=== PATIENT | female | born 1995 | race Caucasian/White ===

== ENCOUNTER 2016-08-11 13:41 | Outpatient (CLI) | payer OTHER ==
[~2016-08-11] VITALS: Ht 160 cm; Wt 74.1 kg
[2016-08-11 13:54] VITALS: BP 119/58; PULSE 83; RESP 18; Ht 160 cm; Wt 74.1 kg
--- NOTE | 2016-08-11 14:51 | PN ---
Date/Time of Note Date/Time of Note DATE: 08/11/16 TIME: 14:47 Outpatient Progress Note Chief Complaint Sepsis/obstructive uropathy/anemia/obesity HPI Sepsis/patient had a pyelonephritis, patient had a bacteremia, patient was recently hospitalized, patient still on antibiotic, Obstructive uropathy/patient had obstructive uropathy, no fever chill, no back pain, improved significantly, Anemia/no hematemesis or melena, ecchymoses bruises or bleeding, Obesity/patient slightly obese, no history of any hypothyroidism, Review of Systems Const: No Fever, no chills, no Wt. loss, no Fatigue, normal appetite, no diaphoresis. Slightly obese, Eyes: No pain, no discharge, no redness, no visual change, no foreign body. ENT: No pain, no bleeding, no congestion, no sore throat, no dysphagia, no discharge or rhinitis. Lymph: No adenopathy, no tender nodes, no lymphedema. Resp: No SOB, no cough, no sputum, no wheezing, no chest pain. CV: No chest pain, no palpitaions, no WILSON, no PND, no edema. GI: Normal appetite, no pain, no nausea, no vomiting, no diarrhea, no blood, no constipation. : No frequency, no urgency, no dysuria, no hematuria, minimal right flank pain which has improved significantly, no discharge, no bleeding. Musc: No bone/joint pain, no back pain, no neck pain, no knee pain, no restricted ROM. Skin: No rash, no skin lesions, no erythema, no laceration, no bruising, no pruritus. Neuro: No CARMONA, no dizziness, no syncope, no seizure, no focal-weakness. Endo: No polyuria, no polydypsia, no dry-skin, no temp-intolerance. Psych: No hallucinations, no depression, no anxiety, no suicidal ideation. Ext: No edema, no pain, no ulcer, no weakness. Physical Exam Vital Signs Date Time Temp Pulse Resp B/P Pulse Ox O2 Delivery O2 Flow Rate FiO2 08/11/16 13:54 98.7 83 18 119/58 99 Room Air General Appearance: A 21 year-old female who appears well-developed, well- nourished, in no acute distress. HEENT: Head normocephalic, atraumatic. Pupils equal, round, reactive to light and accommodate. Sclerae are no jaundice. Nasal turbinates pink without erythema or nasal discharge. Mucous membranes pink and moist without lesions. Oropharynx clear without any exudate or discharge. NECK: Supple. Trachea midline, No thyromegaly, No cervical lymphadenopathy, No mass, No carotid bruits, No JVD, Carotid pulses 2+ bilaterally. PULMONARY: Clear to auscultaion bilaterally, No retractions, Chest expansion symmetric bilaterally, no rales, no ronchi, no dulness on percussion. CARDIAC: Normal SI and S2, Regular rate and rythm, no murmur, gallop, or rub. GASTROINTESTINAL: Abdomen is soft, non-tender, Non Rigid, No distention, Positive bowel sounds x4 quadrants, Liver normal patient has a right flank discomfort, minimal, improved significantly, SKIN: Warm, dry, no rash, no bruise, no echmosis. EXTREMITIES: Bilateral lower extremities normal, no edema, no phlabitus, pulse palpable, no contracture. MUSCULOSKELETAL: Spine Normal, Non-tender, Normal range of motion, No swelling, no deformity, no clubbing, or cyanosis, the patient has no edema to bilateral lower extremities, dorsalis pedis pulses palpable bilaterally. NEUROLOGIC: The patient is awake, alert, oriented, responding to yes/no questions appropriately, moving all extremities, cranial nerve intact, normal strenght, normal power, normal coordination, normal gait. Allergies Coded Allergies: No Known Drug Allergies (Verified Allergy, Unknown, 08/11/16) PMH Sepsis/obstructive uropathy/anemia/obesity Social Hx No smoking no drinking no drugs, Family Hx Noncontributory Assessment/Plan Impression Sepsis/pyelonephritis/obstructive uropathy/anemia/obesity Plan Patient still has minimal discomfort on right flank, but significantly improved , patient still has antibiotic, Patient encouraged to follow with the primary care physician, CBC and CMP, Patient education done, if patient's fever persist or severe pain call us or go to ER, NE THOMAS MD Aug 11, 2016 14:51
== END 2016-08-11 16:33 | disposition home or self-care (01) ==
LOC: DCC 13:41
PROVIDERS: ATTEND Internal Medicine
DX: N12 Tubulo-interstitial nephritis, not specified as acute or chronic (principal); N13.9 Obstructive and reflux uropathy, unspecified; D64.9 Anemia, unspecified; E66.9 Obesity, unspecified; Z68.28 Body mass index [BMI] 28.0-28.9, adult

== ENCOUNTER 2017-04-07 23:20 | Inpatient (IN) | END 2017-04-12 16:05 | disposition home or self-care (01) | DRG 660 ==

== ENCOUNTER 2017-04-18 15:18 | Outpatient (CLI) | END 2017-04-18 17:00 | disposition home or self-care (01) ==